=== PATIENT | male | born 1960 | race African-American/Black ===

== ENCOUNTER 2020-12-05 17:08 | Inpatient (IN) ==
[2020-12-05] MEDS ORDERED: FUROSEMIDE 100 MG/10 ML VIAL ONE (17:49)
[2020-12-05] MEDS ORDERED: FUROSEMIDE 40 MG/4 ML VIAL IV STA (17:50)
[2020-12-05 18:09] LABS: Basophils % 0.5 % (0.0-0.8); Eosinophils # 0.1 10*3/uL (0.0-0.87); Hematocrit 47.3 VOL% (42.0-52.0); Hemoglobin 15.6 GM/DL (14.0-18.0); Immature Granulocytes % 0.2 %; Immature Granulocytes Absolute 0.01 #; Lymphocytes # 2.2 10*3/uL (1.4-4.0); Lymphocytes % 36.5 % (21.2-54.2); Mean Corpuscular Volume 87.6 FL (87-102); Mean Platelet Volume 12.3 FL (9.6-12.0); Neutrophils % 52.8 % (38.7-73.9); Platelet Count 187 T/CUMM (130-400); White Blood Count 6.1 T/CUMM (4-12)
[2020-12-05 18:31] LABS: Albumin 2.9 G/DL (3.4-5.0); Calcium 8.4 MG/DL (8.5-10.1); Osmolality,Calculated 290.4 MOS/KG (273-304); Potassium 4.1 MMOL/L (3.5-5.1); Total Protein 5.9 G/DL (6.4-8.3)
[2020-12-05] MEDS ORDERED: NITROGLYCERIN 2% OINT 1 INCH/GM PACK TOP STA (18:58)
[2020-12-05] MEDS ORDERED: LABETALOL 20 MG/4 ML SYRINGE IV STA (19:42)
[2020-12-05] MEDS ORDERED: GLUCAGON 1 MG VIAL IM PRN (20:04)
[2020-12-05] MEDS ORDERED: DEXTROSE 50% 25 GM/50 ML VIAL IV PRN (20:04)
[2020-12-06 03:07] LABS: Basophils % 0.7 % (0.0-0.8); Eosinophils # 0.1 10*3/uL (0.0-0.87); Eosinophils % 1.6 % (0.00-10.9); Hematocrit 48.3 VOL% (42.0-52.0); Hemoglobin 15.6 GM/DL (14.0-18.0); Immature Granulocytes % 0.5 %; Immature Granulocytes Absolute 0.03 #; Lymphocytes % 34.4 % (21.2-54.2); Mean Corpuscular HGB Conc 32.3 GM/DL (32-36); Mean Corpuscular Volume 87.2 FL (87-102); Mean Platelet Volume 11.7 FL (9.6-12.0); Monocytes % 11.2 % (1.7-12.7); Neutrophils % 51.6 % (38.7-73.9); Platelet Count 197 T/CUMM (130-400); Red Blood Count 5.54 MC/CUMM (3.8-5.5); Red Cell Distribution Width 14.9 % (9.3-17.3); White Blood Count 5.7 T/CUMM (4-12)
[2020-12-06 03:18] LABS: Calcium 8.6 MG/DL (8.5-10.1); Osmolality,Calculated 295.1 MOS/KG (273-304)
[2020-12-06] MEDS ORDERED: ENOXAPARIN 40 MG/0.4 ML SYRINGE SUBCUT SCH (09:00)
[2020-12-06] MEDS: PANTOPRAZOLE 40 MG VIAL IV SCH (09:04)
[2020-12-06] MEDS: ASPIRIN EC 81 MG TABLET PO SCH (12:44)
[2020-12-06] MEDS: ISOSORBIDE MONONITRATE 30 MG TABLET PO SCH (12:44)
[2020-12-06] MEDS: carvediloL 6.25 MG TABLET PO SCH ×3 (12:44→22:29)
[2020-12-06 13:55] LABS: Hepatitis B Core IgM Quant 0.08 Index; Hepatitis B Surface Ag Quant < 0.10 Index; Hepatitis B Surface Ag Result Negative (Negative); Hepatitis C Virus Ab Quant 0.02 Index; Hepatitis C Virus Ab Result Negative (Negative)
[2020-12-06] MEDS: hydrALAZINE 20 MG/1 ML VIAL IV PRN (19:57)
[2020-12-06 22:48] LABS: Barbiturates Screen,Urine Negative (Negative); Benzodiazepines Screen,Urine Negative (Negative); Cannabinoid Screen,Urine Negative (Negative); Opiate Screen,Urine Negative (Negative); Phencyclidine Screen,Urine Negative (Negative)
[2020-12-07 06:31] LABS: Basophils % 0.7 % (0.0-0.8); Eosinophils # 0.1 10*3/uL (0.0-0.87); Eosinophils % 2.5 % (0.00-10.9); Hemoglobin 15.2 GM/DL (14.0-18.0); Immature Granulocytes % 0.4 %; Immature Granulocytes Absolute 0.02 #; Lymphocytes # 1.7 10*3/uL (1.4-4.0); Lymphocytes % 29.7 % (21.2-54.2); Mean Corpuscular HGB Conc 32.3 GM/DL (32-36); Mean Corpuscular Volume 87.4 FL (87-102); Mean Platelet Volume 12.1 FL (9.6-12.0); Neutrophils % 54.7 % (38.7-73.9); Platelet Count 193 T/CUMM (130-400); Red Blood Count 5.38 MC/CUMM (3.8-5.5); Red Cell Distribution Width 14.8 % (9.3-17.3); White Blood Count 5.6 T/CUMM (4-12)
[2020-12-07 06:43] LABS: Calcium 8.3 MG/DL (8.5-10.1); Osmolality,Calculated 289.3 MOS/KG (273-304); Potassium 3.9 MMOL/L (3.5-5.1)
[2020-12-07 06:47] LABS: Albumin 2.7 G/DL (3.4-5.0); Bilirubin,Direct 0.2 MG/DL (0.0-0.20); Bilirubin,Indirect 1.2 MG/DL (0.0-1.0); Bilirubin,Total 1.4 MG/DL (0.2-1.0); Total Protein 5.6 G/DL (6.4-8.3)
[2020-12-07] MEDS: LACTATED RINGERS 1,000 ML IV SCH (10:10)
[2020-12-07] MEDS ORDERED: POTASSIUM CHLORIDE RIDER 10 MEQ in PREMIX 1 EACH IV PRN (10:47)
[2020-12-07] MEDS ORDERED: MAGNESIUM SULF RIDER 2 GM in PREMIX 1 EACH IV PRN (10:47)
[2020-12-07] MEDS ORDERED: hydrALAZINE 20 MG/1 ML VIAL ONE (10:55)
[2020-12-07] MEDS: hydrALAZINE 20 MG/1 ML VIAL IV PRN (11:15)
[2020-12-07] MEDS ORDERED: propofoL 200 MG/20 ML VIAL IV ONE (11:56)
[2020-12-07] MEDS ORDERED: ETOMIDATE 20 MG/10 ML VIAL IV ONE (11:56)
[2020-12-07] MEDS ORDERED: LIDOCAINE 2% 5 ML VIAL ONE (11:56)
[2020-12-07] MEDS: carvediloL 6.25 MG TABLET PO SCH ×2 (13:40→20:21)
[2020-12-07] MEDS: ISOSORBIDE MONONITRATE 30 MG TABLET PO SCH (13:40)
[2020-12-07] MEDS: ASPIRIN EC 81 MG TABLET PO SCH (13:40)
[2020-12-07] MEDS: PANTOPRAZOLE 40 MG VIAL IV SCH (13:44)
[2020-12-07] MEDS: hydrALAZINE 25 MG TABLET PO SCH ×3 (13:44→20:21)
[2020-12-08] MEDS: hydrALAZINE 20 MG/1 ML VIAL IV PRN (02:27)
[2020-12-08 06:15] LABS: Basophils % 0.3 % (0.0-0.8); Eosinophils # 0.1 10*3/uL (0.0-0.87); Eosinophils % 0.7 % (0.00-10.9); Hematocrit 45.5 VOL% (42.0-52.0); Hemoglobin 15.1 GM/DL (14.0-18.0); Immature Granulocytes % 0.2 %; Immature Granulocytes Absolute 0.02 #; Lymphocytes # 1.5 10*3/uL (1.4-4.0); Lymphocytes % 17.2 % (21.2-54.2); Mean Corpuscular HGB Conc 33.2 GM/DL (32-36); Mean Corpuscular Volume 85.7 FL (87-102); Mean Platelet Volume 12.2 FL (9.6-12.0); Monocytes % 10.7 % (1.7-12.7); Neutrophils % 70.9 % (38.7-73.9); Platelet Count 190 T/CUMM (130-400); Red Blood Count 5.31 MC/CUMM (3.8-5.5); Red Cell Distribution Width 14.8 % (9.3-17.3); White Blood Count 8.9 T/CUMM (4-12)
[2020-12-08 06:35] LABS: Calcium 8.5 MG/DL (8.5-10.1); Osmolality,Calculated 282.7 MOS/KG (273-304); Potassium 3.7 MMOL/L (3.5-5.1)
[2020-12-08 06:43] LABS: Risk Ratio 4.15; VLDL CHOLESTEROL 13.8 MG/DL
[2020-12-08] MEDS: PANTOPRAZOLE 40 MG VIAL IV SCH (09:03)
[2020-12-08] MEDS: LACTATED RINGERS 1,000 ML IV SCH (09:58)
[2020-12-08] MEDS ORDERED: diphenhydrAMINE CAP 25 MG CAPSULE PO ONE (10:47)
[2020-12-08] MEDS ORDERED: DIAZEPAM 5 MG TABLET PO ONE (10:47)
[2020-12-08] MEDS: hydrALAZINE 25 MG TABLET PO SCH ×3 (11:57→21:09)
[2020-12-08] MEDS: carvediloL 6.25 MG TABLET PO SCH ×2 (11:57→21:09)
[2020-12-08] MEDS: ISOSORBIDE MONONITRATE 30 MG TABLET PO SCH (11:57)
[2020-12-08] MEDS: ASPIRIN EC 81 MG TABLET PO SCH (11:57)
[2020-12-08] MEDS ORDERED: LIDOCAINE 1% 20 ML VIAL ONE (14:05)
[2020-12-08] MEDS ORDERED: HEPARIN/NACL 0.9% 2 UNITS/ML 1,000 ML IV ONE (14:05)
[2020-12-08] MEDS ORDERED: HEPARIN/NACL 0.9% 2 UNITS/ML 500 ML IV ONE ×2 (14:14→15:38)
[2020-12-08] MEDS ORDERED: fentaNYL 100 MCG/2 ML VIAL ONE (14:20)
[2020-12-08] MEDS ORDERED: MIDAZOLAM 2 MG/2 ML VIAL ONE (14:20)
[2020-12-08] MEDS ORDERED: HEPARIN 5,000 UNIT/1 ML VIAL ONE (14:49)
[2020-12-08] MEDS ORDERED: NITROGLYCERIN DRIP 50 MG/250 ML BOTTLE IV ONE (15:16)
[2020-12-08] MEDS ORDERED: TICAGRELOR 90 MG TABLET ONE (15:53)
[2020-12-08] MEDS: TICAGRELOR 90 MG TABLET PO SCH (21:09)
[2020-12-09] MEDS ORDERED: ZALEPLON 5 MG CAPSULE PO PRN (00:24)
[2020-12-09 04:46] LABS: Basophils % 0.6 % (0.0-0.8); Eosinophils # 0.1 10*3/uL (0.0-0.87); Eosinophils % 1.2 % (0.00-10.9); Hematocrit 44.9 VOL% (42.0-52.0); Hemoglobin 14.6 GM/DL (14.0-18.0); Immature Granulocytes % 0.4 %; Immature Granulocytes Absolute 0.03 #; Lymphocytes # 1.2 10*3/uL (1.4-4.0); Lymphocytes % 16.7 % (21.2-54.2); Mean Corpuscular HGB Conc 32.5 GM/DL (32-36); Mean Platelet Volume 11.4 FL (9.6-12.0); Monocytes % 14.3 % (1.7-12.7); Neutrophils % 66.8 % (38.7-73.9); Platelet Count 211 T/CUMM (130-400); Red Blood Count 5.16 MC/CUMM (3.8-5.5); Red Cell Distribution Width 14.8 % (9.3-17.3); White Blood Count 6.9 T/CUMM (4-12)
[2020-12-09 05:12] LABS: Calcium 8.5 MG/DL (8.5-10.1); Osmolality,Calculated 280.7 MOS/KG (273-304); Potassium 4.7 MMOL/L (3.5-5.1)
[2020-12-09 05:15] LABS: Albumin 2.5 G/DL (3.4-5.0); Bilirubin,Direct 0.28 MG/DL (0.0-0.20); Bilirubin,Indirect 0.6 MG/DL (0.0-1.0); Bilirubin,Total 0.9 MG/DL (0.2-1.0); Total Protein 5.6 G/DL (6.4-8.3)
[2020-12-09] MEDS ORDERED: carvediloL 12.5 MG TABLET PO SCH (08:16)
[2020-12-09] MEDS ORDERED: hydrALAZINE 25 MG TABLET PO SCH (08:17)
[2020-12-09] MEDS ORDERED: ATORVASTATIN 40 MG TABLET PO SCH (09:00)
[2020-12-09] MEDS ORDERED: FUROSEMIDE 40 MG TABLET PO SCH (09:00)
[2020-12-09] MEDS: TICAGRELOR 90 MG TABLET PO SCH (09:45)
[2020-12-09] MEDS: ISOSORBIDE MONONITRATE 30 MG TABLET PO SCH (09:45)
[2020-12-09] MEDS: PANTOPRAZOLE 40 MG VIAL IV SCH (09:45)
[2020-12-09] MEDS: ASPIRIN EC 81 MG TABLET PO SCH (09:45)
[2020-12-09 13:01] VITALS: BP 146/90
== END 2020-12-09 13:25 | disposition home or self-care (01) | DRG 246 ==
LOC: N.EDINP 17:08 → N.ED 17:08 → N.TELES 20:59
PROVIDERS: ADMIT Internal Medicine; ATTEND Internal Medicine

== ENCOUNTER 2022-03-09 10:04 | Observation (INO) ==
[2022-03-09] MEDS ORDERED: hydrALAZINE 20 MG/1 ML VIAL IV STA ×2 (11:32→12:56)
[2022-03-09 12:42] LABS: Bacteria,Urine Occasional /HPF (Few); Mucus,Urine Occasional /LPF (Occasional); RBC,Urine 3 /HPF (0-4)
[2022-03-09 12:44] LABS: Bilirubin,Urine Negative (Negative); Blood, Urine Negative (Negative); Glucose,Urine (UA) Negative (Negative); Ketones,Urine Trace mg/dL (Negative); Nitrite,Urine Negative (Negative); Protein,Urine Negative (Negative); Urine Appearance Clear (Clear); Urine Color Yellow (Yellow); Urine Urobilinogen 0.2 eU/dL (<2.0)
[2022-03-09 13:05] LABS: Barbiturates Screen,Urine Negative (Negative); Benzodiazepines Screen,Urine Negative (Negative); Cannabinoid Screen,Urine Negative (Negative); Opiate Screen,Urine Negative (Negative); Phencyclidine Screen,Urine Negative (Negative)
[2022-03-09 13:36] LABS: Basophils % 0.7 % (0.0-0.8); Eosinophils # 0.1 10*3/uL (0.0-0.87); Hematocrit 42.4 VOL% (42.0-52.0); Hemoglobin 13.3 GM/DL (14.0-18.0); Immature Granulocytes % 0.2 %; Immature Granulocytes Absolute 0.01 #; Lymphocytes # 1.3 10*3/uL (1.4-4.0); Lymphocytes % 29.4 % (21.2-54.2); Mean Corpuscular HGB Conc 31.4 GM/DL (32-36); Mean Corpuscular Volume 89.6 FL (87-102); Monocytes # 0.7 10*3/uL (0.11-0.8); Monocytes % 15.4 % (1.7-12.7); Neutrophils % 51.3 % (38.7-73.9); Platelet Count 182 T/CUMM (130-400); Red Blood Count 4.73 MC/CUMM (3.8-5.5); Red Cell Distribution Width 13.9 % (9.3-17.3); White Blood Count 4.4 T/CUMM (4-12)
[2022-03-09 14:29] LABS: Osmolality,Calculated 281.4 MOS/KG (273-304); Potassium 3.5 MMOL/L (3.5-5.1)
[2022-03-09] MEDS: niCARdipine INJ 25 MG in SODIUM CHLORIDE 0.9% 240 ML IV PRN ×3 (14:33→22:54)
[2022-03-09] MEDS ORDERED: ONDANSETRON 4 MG/2 ML VIAL IV PRN (16:14)
[2022-03-09] MEDS ORDERED: ALBUTEROL 2.5 MG/3 ML NEB RESP TX PRN (16:14)
[2022-03-09] MEDS ORDERED: NITROGLYCERIN SL 0.4 MG TABLET SL PRN (16:45)
[2022-03-09] MEDS ORDERED: niCARdipine INJ 25 MG in SODIUM CHLORIDE 0.9% 240 ML IV PRN (17:28)
[2022-03-09] MEDS: carvediloL 25 MG TABLET PO SCH (18:10)
[2022-03-09] MEDS: SACUBITRIL/VALSARTAN 49-51 MG TABLET PO SCH (18:10)
[2022-03-09] MEDS: FUROSEMIDE 40 MG TABLET PO SCH (18:10)
[2022-03-09] MEDS: POTASSIUM CHLORIDE 20 MEQ TABLET PO SCH ×2 (18:15→22:50)
[2022-03-09] MEDS: cloNIDine 0.1 MG TABLET PO SCH (22:50)
[2022-03-10] MEDS: POTASSIUM CHLORIDE 20 MEQ TABLET PO SCH (01:57)
[2022-03-10 04:54] LABS: Basophils % 0.5 % (0.0-0.8); Eosinophils # 0.2 10*3/uL (0.0-0.87); Eosinophils % 2.5 % (0.00-10.9); Hematocrit 47.4 VOL% (42.0-52.0); Hemoglobin 15.2 GM/DL (14.0-18.0); Immature Granulocytes % 0.3 %; Immature Granulocytes Absolute 0.02 #; Lymphocytes # 1.1 10*3/uL (1.4-4.0); Mean Corpuscular HGB Conc 32.1 GM/DL (32-36); Mean Corpuscular Volume 86.8 FL (87-102); Mean Platelet Volume 10.8 FL (9.6-12.0); Monocytes # 0.7 10*3/uL (0.11-0.8); Monocytes % 11.5 % (1.7-12.7); Neutrophils % 67.2 % (38.7-73.9); Platelet Count 197 T/CUMM (130-400); Red Blood Count 5.46 MC/CUMM (3.8-5.5); Red Cell Distribution Width 13.9 % (9.3-17.3); White Blood Count 5.9 T/CUMM (4-12)
[2022-03-10 05:20] LABS: Albumin 3.3 G/DL (3.4-5.0); Bilirubin,Total 0.4 MG/DL (0.20-1.00); Calcium 9.3 MG/DL (8.5-10.1); Potassium 3.9 MMOL/L (3.5-5.1); Total Protein 7.4 G/DL (6.4-8.2)
[2022-03-10 07:36] VITALS: BP 88/49
[2022-03-10] MEDS: cloNIDine 0.1 MG TABLET PO SCH (08:02)
[2022-03-10] MEDS: carvediloL 25 MG TABLET PO SCH (08:02)
[2022-03-10] MEDS: SACUBITRIL/VALSARTAN 49-51 MG TABLET PO SCH (08:03)
[2022-03-10] MEDS: FUROSEMIDE 40 MG TABLET PO SCH (08:03)
[2022-03-10] MEDS ORDERED: PANTOPRAZOLE 40 MG TABLET PO SCH (09:00)
[2022-03-10] MEDS ORDERED: CLOPIDOGREL 75 MG TABLET PO SCH (09:00)
[2022-03-10] MEDS ORDERED: ATORVASTATIN 40 MG TABLET PO SCH (09:00)
[2022-03-10] MEDS ORDERED: ASPIRIN EC 81 MG TABLET PO SCH (09:00)
[2022-03-10] MEDS ORDERED: ISOSORBIDE MONONITRATE 60 MG TABLET PO SCH (09:00)
== END 2022-03-10 13:51 | disposition home or self-care (01) ==
LOC: N.ED 10:04 → INTOOBSV 16:14 → N.EDINP 16:14 → N.CC 23:39
PROVIDERS: ADMIT Internal Medicine; ATTEND Internal Medicine